=== PATIENT | male | born 1945 | race Caucasian/White ===

== ENCOUNTER 2024-09-30 08:03 | Day surgery (SDC) | payer MEDICARE, SELFPAY ==
[2024-09-25 12:08] VITALS: BMI 25.2
[2024-09-25 12:18] VITALS: BMI 25.2
[2024-09-30] MEDS: Tetracaine HCl/PF 0.5% Oph Sol 4 ML DROPS 1 DROP EYE-LEFT (08:19)
[2024-09-30] MEDS: Cyclopentolate 1 % Ophth Sol 2 ML DRPBTL 1 DROP EYE-LEFT ×3 (08:20→08:36)
[2024-09-30] MEDS: Tropicamide 1 % Ophth Sol 3 ML BTL 1 DROP EYE-LEFT ×3 (08:22→08:38)
[2024-09-30] MEDS: Ketorolac Tromethamine 0.5% Op 5 ML DROPS 1 DROP EYE-LEFT ×3 (08:24→08:40)
[2024-09-30] MEDS: Phenylephrine HCL 2.5% Oph SoL 2 ML BOTTLE 1 DROP EYE-LEFT ×3 (08:26→08:42)
[2024-09-30 08:28] VITALS: BP 119/70; PULSE 65; RESP 16; TEMP 36.4; O2SAT 97; BMI 25.0
--- NOTE | 2024-09-30 08:40 | HO.ANESPROP2 ---
Documented by User: Anastacia Linares NP 09/27/24 08:41 HPI - Anesthesia Eval Consult details Narrative: 78yo M for Left Cataract Extraction IOL Insertion No previous cataract on record Medically opimized per [facility]. States well optimized with medical therapy. CAD s/p CABG s/p AVR HFrEF Eliquis for afib [facility] Past Medical History Medical History (Updated 09/25/24 @ 12:21 by Jocelyn Bach, RN) History of stroke (11/20/23) History of cardioversion Glaucoma Hx-TIA (transient ischemic attack) History of prostate cancer PAF (paroxysmal atrial fibrillation) HTN (hypertension) HLD (hyperlipidemia) Chronic sinusitis CKD (chronic kidney disease), stage III Cardiomyopathy Cataracts, bilateral HFrEF (heart failure with reduced ejection fraction) CAD (coronary artery disease) Surgical History Surgical History (Updated 09/30/24 @ 08:24 by Marnie Mcclendon RN) Hx of tonsillectomy History of heart artery stent Hx of prostatectomy Hx of aortic valve replacement (~2021) Hx of CABG Social History Social History Patient Tobacco Use Status: Never used Tobacco Are you DNR?: No Advance Directives: No Advance Directives Information Provided: Yes Advance Directives on File: No Meds Allergies Allergy/AdvReac Type Severity Reaction Status Date / Time acetaminophen [From Tylenol] AdvReac Intermediate Dizziness Verified 09/30/24 08:25 *If taken for long periods of time* amoxicillin [From Augmentin] AdvReac Gastrointestinal Verified 09/30/24 08:25 Upset clavulanic acid AdvReac Gastrointestinal Verified 09/30/24 08:25 [From Augmentin] Upset prednisone AdvReac contraindicated Verified 09/30/24 08:25 r/t glaucoma Sulfa (Sulfonamide AdvReac Gastrointestinal Verified 09/30/24 08:25 Antibiotics) Upset Home Medications ?Medication ?Instructions ?Recorded ?Confirmed ?Last Taken ?Type apixaban 5 mg tablet (Eliquis) 5 mg PO BID 09/25/24 09/30/24 09/30/24 History aspirin 162.5 mg capsule,extended 162.5 mg PO DAILY 09/25/24 09/30/24 Unknown History release 24 hr atorvastatin 40 mg tablet 40 mg PO DAILY 09/25/24 09/30/24 Unknown History carvedilol 3.125 mg tablet 3.125 mg PO BID 09/25/24 09/30/24 09/30/24 History latanoprost 0.005 % eye drops 1 drp ophthalmic (eye) DAILY 09/25/24 09/30/24 Unknown History (Xalatan) sacubitril 97 mg-valsartan 103 mg 1 tab PO BID 09/25/24 09/30/24 09/30/24 History tablet (Entresto) Exam Height,Weight and Vital Signs: Height 5 ft 4.96 in Weight 68.6 kg Assessment and Plan Assessment Anesthesia Assessment: Chart Reviewed Documented by User: Ale Farah DO 09/30/24 08:50 [facility] Past Medical History Medical History (Updated 09/25/24 @ 12:21 by Jocelyn Bach RN) History of stroke (11/20/23) History of cardioversion Glaucoma Hx-TIA (transient ischemic attack) History of prostate cancer PAF (paroxysmal atrial fibrillation) HTN (hypertension) HLD (hyperlipidemia) Chronic sinusitis CKD (chronic kidney disease), stage III Cardiomyopathy Cataracts, bilateral HFrEF (heart failure with reduced ejection fraction) CAD (coronary artery disease) Family History Family history of problems with anesthesia: No Surgical History Surgical History (Updated 09/30/24 @ 08:24 by Marnie Mcclendon RN) Hx of tonsillectomy History of heart artery stent Hx of prostatectomy Hx of aortic valve replacement (~2021) Hx of CABG History of Problems with Anesthesia: No Social History Social History Patient Tobacco Use Status: Never used Tobacco Are you DNR?: No Advance Directives: No Advance Directives Information Provided: Yes Advance Directives on File: No Meds Allergies Allergy/AdvReac Type Severity Reaction Status Date / Time acetaminophen [From Tylenol] AdvReac Intermediate Dizziness Verified 09/30/24 08:25 *If taken for long periods of time* amoxicillin [From Augmentin] AdvReac Gastrointestinal Verified 09/30/24 08:25 Upset clavulanic acid AdvReac Gastrointestinal Verified 09/30/24 08:25 [From Augmentin] Upset prednisone AdvReac contraindicated Verified 09/30/24 08:25 r/t glaucoma Sulfa (Sulfonamide AdvReac Gastrointestinal Verified 09/30/24 08:25 Antibiotics) Upset Home Medications ?Medication ?Instructions ?Recorded ?Confirmed ?Last Taken ?Type apixaban 5 mg tablet (Eliquis) 5 mg PO BID 09/25/24 09/30/24 09/30/24 History aspirin 162.5 mg capsule,extended 162.5 mg PO DAILY 09/25/24 09/30/24 Unknown History release 24 hr atorvastatin 40 mg tablet 40 mg PO DAILY 09/25/24 09/30/24 Unknown History carvedilol 3.125 mg tablet 3.125 mg PO BID 09/25/24 09/30/24 09/30/24 History latanoprost 0.005 % eye drops 1 drp ophthalmic (eye) DAILY 09/25/24 09/30/24 Unknown History (Xalatan) sacubitril 97 mg-valsartan 103 mg 1 tab PO BID 09/25/24 09/30/24 09/30/24 History tablet (Entresto) Exam Exam Date and Time: 09/30/24 0840 Height,Weight and Vital Signs: Height 5 ft 4.96 in Weight 68.6 kg Vital Signs Temperature 97.5 F 09/30/24 08:28 Pulse Rate 65 09/30/24 08:28 Respiratory Rate 16 09/30/24 08:28 Blood Pressure 119/70 09/30/24 08:28 Pulse Oximetry 97 09/30/24 08:28 Oxygen Delivery Method Room Air 09/30/24 08:28 Temperature 97.5 F 09/30/24 08:28 Pulse Rate 65 09/30/24 08:28 Respiratory Rate 16 09/30/24 08:28 Blood Pressure 119/70 09/30/24 08:28 Pulse Oximetry 97 09/30/24 08:28 Oxygen Delivery Method Room Air 09/30/24 08:28 Airway Mallampati Class: II TM Dist: >3cm Neck ROM: Full Denture: Upper and Lower Heart: S1S2 Lungs: CTAB Assessment and Plan Assessment Anesthesia Assessment: Anesthesia Plan Discussed and Chart Reviewed Final Anesthetic Review Family History of Problems with Anesthesia: No History of Problems with Anesthesia: No NPO: Yes ASA Class: III Final Preanesthetic Review: No Changes in Pt Med Stat, Meds/Allgs Chart Reviewed, Consent Obtained/Reviewed and Anes Risks/Benef Reviewed Patient Risk: Intermediate Procedure Risk: Low Anesthetic Plan Anesthetic Plan: MAC: and Agree w/ Assess. and Plan Disposition: Standard PACU
[2024-09-30] MEDS: Lactated Ringers 500 ML 50 ML IV (08:49)
--- NOTE | 2024-09-30 08:52 | PC.NURSE ---
Patient in preop. SR on monitor, question of inverted T wave/T wave abnormality. Dr. Farah made aware and at bedside. Known cardiac history as well as medical/cardiac clearance obtained. No new EKG or new orders per Dr. Farah.
--- NOTE | 2024-09-30 09:09 | MHC.SHP ---
Pre-Procedural Eval Section A - 24 Hr Update-Section A only Date of Service: 09/30/24 The patient is an INPATIENT: No Changes since office visit: No Cold of Flu in the past 2 weeks, No New Medical Problems, No Changes in Medication and No Patient answered all questions The patient has been examined within 24 hours of the surgical procedure. The History & Physical has been completed within 30 days and I have reviewed it.: Yes Section B - Complete if H&P > 30 days Chief Complaint: Age-related nuclear cataract, left eye Allergies: Allergies Allergy/AdvReac Type Severity Reaction Status Date / Time acetaminophen [From Tylenol] AdvReac Intermediate Dizziness Verified 09/30/24 08:25 *If taken for long periods of time* amoxicillin [From Augmentin] AdvReac Gastrointestinal Verified 09/30/24 08:25 Upset clavulanic acid AdvReac Gastrointestinal Verified 09/30/24 08:25 [From Augmentin] Upset prednisone AdvReac contraindicated Verified 09/30/24 08:25 r/t glaucoma Sulfa (Sulfonamide AdvReac Gastrointestinal Verified 09/30/24 08:25 Antibiotics) Upset Plan Diagnosis/Plan: Unchanged I have reviewed the history and physical and performed a pertinent physical examination on my patient. No changes have occurred unless specified. Time Spent With Patient Time: Total time managing care of this patient today ____ minutes.
--- NOTE | 2024-09-30 09:09 | HO.PNOPHT ---
Ophthalmology Procedure Procedure Date of Service: 09/30/24 Ophthalmology Viscoelastic: Healon Duet Dual Pack Pro Ophthalmology Lenses: IOL Acrysof MP - MA60AC (18.5) Procedure Notes: PREOPERATIVE DIAGNOSIS: Decreased visual acuity left eye secondary to cataract POSTOPERATIVE DIAGNOSIS: Same PROCEDURE: Left cataract extraction with intraocular lens insertion SURGEON: Jarrett Gould M.D. ANESTHESIA: Topical/MAC ESTIMATED BLOOD LOSS: None COMPLICATIONS: None After obtaining informed consent, the patient was brought to the operation room suite and placed in the supine position. After adequate sedation per anesthesia, topical drops of Tetracaine were given to the left eye. The eye was then prepped and draped in the usual sterile fashion. The operating room microscope was then positioned over the operative eye and a lid speculum placed. A paracentesis was created. Viscoelastic was then instilled into the anterior chamber. A three plane incision was then created temporally, utilizing a 2.85 mm keratome. Capsulotomy forceps were then utilized to create a circular tear capsulotomy. Hydrodissection and hydrodelineation were carried out until adequate mobilization of the nucleus occurred. Phacoemulsification was then utilized to remove the dense central nucleus followed by removal of the cortical material utilizing the automated aspiration irrigation unit. Viscoat elastic was instilled into the posterior capsular bag followed by placement of a posterior chamber intraocular lens without difficulty. The residual Viscoat elastic was then removed utilizing the automated IA machine. The wound was check and found to be watertight. The patient tolerated the procedure well and the lid speculum was removed. Intracameral injection of Vigamox 0.1 mL followed by a subtenon injection of Kenalog-40 0.2 mL were administered. The patient will be seen in the a.m.
[2024-09-30 09:37] VITALS: BP 100/65; PULSE 62; RESP 18; TEMP 36.5; O2SAT 94
== END 2024-09-30 09:40 | disposition home or self-care (01) ==
PROVIDERS: Visit Provider Ophthalmology
PROC: (CPT 66985; principal; 2024-09-30 10:00)
DX: H25.12 Age-related nuclear cataract, left eye (principal); Z83.511 Family history of glaucoma; H54.7 Unspecified visual loss; H35.3121 Nonexudative age-related macular degeneration, left eye, early dry stage; H40.1131 Primary open-angle glaucoma, bilateral, mild stage; E78.00 Pure hypercholesterolemia, unspecified; Z85.46 Personal history of malignant neoplasm of prostate; Z90.79 Acquired absence of other genital organ(s); I10 Essential (primary) hypertension; I48.91 Unspecified atrial fibrillation; I25.10 Atherosclerotic heart disease of native coronary artery without angina pectoris; Z95.1 Presence of aortocoronary bypass graft; Z95.2 Presence of prosthetic heart valve; Z95.5 Presence of coronary angioplasty implant and graft; Z86.73 Personal history of transient ischemic attack (TIA), and cerebral infarction without residual deficits; Z79.01 Long term (current) use of anticoagulants; Z79.82 Long term (current) use of aspirin; Z79.899 Other long term (current) drug therapy; Z88.2 Allergy status to sulfonamides; Z87.891 Personal history of nicotine dependence
CPT/HCPCS: 66984; J2250; J3301; V2630

== ENCOUNTER 2024-10-14 07:05 | Day surgery (SDC) | payer MEDICARE, SELFPAY ==
[2024-09-25 12:27] VITALS: BMI 25.2
[2024-10-14 07:44] VITALS: BMI 25.1
[2024-10-14 07:52] VITALS: BP 135/74; PULSE 61; RESP 16; TEMP 36; O2SAT 96
[2024-10-14] MEDS: Tetracaine HCl/PF 0.5% Oph Sol 4 ML DROPS 1 DROP EYE-RIGHT (07:59)
[2024-10-14] MEDS: Cyclopentolate 1 % Ophth Sol 2 ML DRPBTL 1 DROP EYE-RIGHT ×3 (08:00→08:06)
[2024-10-14] MEDS: Ketorolac Tromethamine 0.5% Op 5 ML DROPS 1 DROP EYE-RIGHT ×3 (08:01→08:07)
[2024-10-14] MEDS: Tropicamide 1 % Ophth Sol 3 ML BTL 1 DROP EYE-RIGHT ×3 (08:01→08:06)
[2024-10-14] MEDS: Phenylephrine HCL 2.5% Oph SoL 2 ML BOTTLE 1 DROP EYE-RIGHT ×3 (08:02→08:07)
--- NOTE | 2024-10-14 08:06 | P.CONAN_ITS ---
Documented by User: Anastacia Linares NP 10/10/24 14:05 HPI - Anesthesia Eval Consult details Narrative: 78yo M for Right Cataract Extraction IOL Insertion Left eye 09/30/24: [facility] 1 Medically opimized per [facility]. States well optimized with medical therapy. CAD s/p CABG s/p AVR HFrEF Eliquis for afib [facility] Past Medical History Medical History (Updated 09/25/24 @ 12:21 by Jocelyn Bach, KARIE) History of stroke (11/20/23) History of cardioversion Glaucoma Hx-TIA (transient ischemic attack) History of prostate cancer PAF (paroxysmal atrial fibrillation) HTN (hypertension) HLD (hyperlipidemia) Chronic sinusitis CKD (chronic kidney disease), stage III Cardiomyopathy Cataracts, bilateral HFrEF (heart failure with reduced ejection fraction) CAD (coronary artery disease) Family History Family history of problems with anesthesia: No Surgical History Surgical History (Updated 10/08/24 @ 13:47 by Jocelyn Bach, KARIE) History of left cataract extraction (09/30/24) Hx of tonsillectomy History of heart artery stent Hx of prostatectomy Hx of aortic valve replacement (~2021) Hx of CABG History of Problems with Anesthesia: No Social History Social History Patient Tobacco Use Status: Never used Tobacco Use of substances other than those prescribed or required for medical reasons: No Are you DNR?: No Advance Directives: No Advance Directives Information Provided: Yes Advance Directives on File: No Poor oral hygiene: No Meds Allergies Allergy/AdvReac Type Severity Reaction Status Date / Time acetaminophen [From Tylenol] AdvReac Intermediate Dizziness Verified 09/30/24 08:25 *If taken for long periods of time* amoxicillin [From Augmentin] AdvReac Gastrointestinal Verified 09/30/24 08:25 Upset clavulanic acid AdvReac Gastrointestinal Verified 09/30/24 08:25 [From Augmentin] Upset prednisone AdvReac contraindicated Verified 09/30/24 08:25 r/t glaucoma Sulfa (Sulfonamide AdvReac Gastrointestinal Verified 09/30/24 08:25 Antibiotics) Upset Home Medications ?Medication ?Instructions ?Recorded ?Confirmed ?Last Taken ?Type apixaban 5 mg tablet (Eliquis) 5 mg PO BID 09/25/24 10/14/24 10/13/24 History aspirin 162.5 mg capsule,extended 162.5 mg PO DAILY 09/25/24 09/30/24 Unknown History release 24 hr atorvastatin 40 mg tablet 40 mg PO DAILY 09/25/24 09/30/24 Unknown History carvedilol 3.125 mg tablet 3.125 mg PO BID 09/25/24 09/30/24 09/30/24 History latanoprost 0.005 % eye drops 1 drp ophthalmic (eye) DAILY 09/25/24 09/30/24 Unknown History (Xalatan) sacubitril 97 mg-valsartan 103 mg 1 tab PO BID 09/25/24 09/30/24 09/30/24 History tablet (Entresto) Exam Height,Weight and Vital Signs: Height 5 ft 4.96 in Weight 68.6 kg Assessment and Plan Assessment Anesthesia Assessment: Chart Reviewed Final Anesthetic Review Family History of Problems with Anesthesia: No History of Problems with Anesthesia: No Documented by User: Ale aFrah DO 10/14/24 08:07 [facility] Past Medical History Medical History (Updated 09/25/24 @ 12:21 by Jocelyn Bach, RN) History of stroke (11/20/23) History of cardioversion Glaucoma Hx-TIA (transient ischemic attack) History of prostate cancer PAF (paroxysmal atrial fibrillation) HTN (hypertension) HLD (hyperlipidemia) Chronic sinusitis CKD (chronic kidney disease), stage III Cardiomyopathy Cataracts, bilateral HFrEF (heart failure with reduced ejection fraction) CAD (coronary artery disease) Family History Family history of problems with anesthesia: No Surgical History Surgical History (Updated 10/08/24 @ 13:47 by Jocelyn Bach, RN) History of left cataract extraction (09/30/24) Hx of tonsillectomy History of heart artery stent Hx of prostatectomy Hx of aortic valve replacement (~2021) Hx of CABG History of Problems with Anesthesia: No Social History Social History Patient Tobacco Use Status: Never used Tobacco Use of substances other than those prescribed or required for medical reasons: No Are you DNR?: No Advance Directives: No Advance Directives Information Provided: Yes Advance Directives on File: No Poor oral hygiene: No Meds Allergies Allergy/AdvReac Type Severity Reaction Status Date / Time acetaminophen [From Tylenol] AdvReac Intermediate Dizziness Verified 09/30/24 08:25 *If taken for long periods of time* amoxicillin [From Augmentin] AdvReac Gastrointestinal Verified 09/30/24 08:25 Upset clavulanic acid AdvReac Gastrointestinal Verified 09/30/24 08:25 [From Augmentin] Upset prednisone AdvReac contraindicated Verified 09/30/24 08:25 r/t glaucoma Sulfa (Sulfonamide AdvReac Gastrointestinal Verified 09/30/24 08:25 Antibiotics) Upset Home Medications ?Medication ?Instructions ?Recorded ?Confirmed ?Last Taken ?Type apixaban 5 mg tablet (Eliquis) 5 mg PO BID 09/25/24 10/14/24 10/13/24 History aspirin 162.5 mg capsule,extended 162.5 mg PO DAILY 09/25/24 09/30/24 Unknown History release 24 hr atorvastatin 40 mg tablet 40 mg PO DAILY 09/25/24 09/30/24 Unknown History carvedilol 3.125 mg tablet 3.125 mg PO BID 09/25/24 09/30/24 09/30/24 History latanoprost 0.005 % eye drops 1 drp ophthalmic (eye) DAILY 09/25/24 09/30/24 Unknown History (Xalatan) sacubitril 97 mg-valsartan 103 mg 1 tab PO BID 09/25/24 09/30/24 09/30/24 History tablet (Entresto) Exam Exam Date and Time: 10/14/24 0805 Height,Weight and Vital Signs: Height 5 ft 4.96 in Weight 68.6 kg Vital Signs Temperature 96.8 F 10/14/24 07:52 Pulse Rate 61 10/14/24 07:52 Respiratory Rate 16 10/14/24 07:52 Blood Pressure 135/74 10/14/24 07:52 Pulse Oximetry 96 10/14/24 07:52 Oxygen Delivery Method Room Air 10/14/24 07:52 Temperature 96.8 F 10/14/24 07:52 Pulse Rate 61 10/14/24 07:52 Respiratory Rate 16 10/14/24 07:52 Blood Pressure 135/74 0407/25 07:52 Pulse Oximetry 96 10/14/24 07:52 Oxygen Delivery Method Room Air 10/14/24 07:52 Airway Mallampati Class: II TM Dist: >3cm Neck ROM: Full Denture: Upper and Lower Heart: S1S2 Lungs: CTAB Assessment and Plan Assessment Anesthesia Assessment: Anesthesia Plan Discussed and Chart Reviewed Final Anesthetic Review Family History of Problems with Anesthesia: No History of Problems with Anesthesia: No NPO: Yes ASA Class: III Final Preanesthetic Review: No Changes in Pt Med Stat, Meds/Allgs Chart Reviewed, Consent Obtained/Reviewed and Anes Risks/Benef Reviewed Patient Risk: Intermediate Procedure Risk: Low Anesthetic Plan Anesthetic Plan: MAC: and Agree w/ Assess. and Plan Disposition: Standard PACU
[2024-10-14] MEDS: Lactated Ringers 500 ML 50 ML IV (08:08)
--- NOTE | 2024-10-14 08:41 | MHC.SHP ---
Pre-Procedural Eval Section A - 24 Hr Update-Section A only Date of Service: 10/14/24 The patient is an INPATIENT: No Changes since office visit: No Cold of Flu in the past 2 weeks, No New Medical Problems, No Changes in Medication and No Patient answered all questions The patient has been examined within 24 hours of the surgical procedure. The History & Physical has been completed within 30 days and I have reviewed it.: Yes Section B - Complete if H&P > 30 days Chief Complaint: Age-related nuclear cataract, right eye Allergies: Allergies Allergy/AdvReac Type Severity Reaction Status Date / Time acetaminophen [From Tylenol] AdvReac Intermediate Dizziness Verified 09/30/24 08:25 *If taken for long periods of time* amoxicillin [From Augmentin] AdvReac Gastrointestinal Verified 09/30/24 08:25 Upset clavulanic acid AdvReac Gastrointestinal Verified 09/30/24 08:25 [From Augmentin] Upset prednisone AdvReac contraindicated Verified 09/30/24 08:25 r/t glaucoma Sulfa (Sulfonamide AdvReac Gastrointestinal Verified 09/30/24 08:25 Antibiotics) Upset Plan Diagnosis/Plan: Unchanged I have reviewed the history and physical and performed a pertinent physical examination on my patient. No changes have occurred unless specified. Time Spent With Patient Time: Total time managing care of this patient today ____ minutes.
--- NOTE | 2024-10-14 08:42 | P.PCNO_ITS ---
Ophthalmology Procedure Procedure Date of Service: 10/14/24 Ophthalmology Viscoelastic: Healon Duet Dual Pack Pro Ophthalmology Lenses: IOL Acrysof MP - MA60AC (19) Procedure Notes: PREOPERATIVE DIAGNOSIS: Decreased visual acuity right eye secondary to cataract POSTOPERATIVE DIAGNOSIS: Same PROCEDURE: Right cataract extraction with intraocular lens insertion SURGEON: Jarrett Gould M.D. ANESTHESIA: Topical/MAC ESTIMATED BLOOD LOSS: None COMPLICATIONS: None After obtaining informed consent, the patient was brought to the operating room suite and placed in the supine position. After adequate sedation per anesthesia, topical drops of Tetracaine were given to the right eye. The eye was then prepped and draped in the usual sterile fashion. The operating room microscope was then positioned over the operative eye and a lid speculum placed. A paracentesis was created. Viscoelastic was then instilled into the anterior chamber. A three plane incision was then created temporally, utilizing a 2.85 mm keratome. Capsulotomy forceps were then utilized to create a circular tear capsulotomy. Hydrodissection and hydrodelineation were carried out until adequate mobilization of the nucleus occurred. Phacoemulsification was then utilized to remove the dense central nucl eus followed by removal of the cortical material utilizing the automated aspiration irrigation unit. Viscoelastic was instilled into the posterior capsular bag followed by placement of a posterior chamber intraocular lens without difficulty. The residual Viscoelastic was then removed utilizing the automated IA machine. The wound was checked and found to be watertight. The patient tolerated the procedure well and the lid speculum was removed. Intracameral injection of Vigamox 0.1 mL followed by a subtenon injection of Kenalog-40 0.2 mL were administered. The patient will be seen in the a.m.
[2024-10-14 09:14] VITALS: BP 123/71; PULSE 57; RESP 18; TEMP 36.3; O2SAT 98
== END 2024-10-14 09:17 | disposition home or self-care (01) ==
PROVIDERS: Visit Provider Ophthalmology
PROC: (CPT 66985; principal; 2024-10-14 09:00)
DX: H25.11 Age-related nuclear cataract, right eye (principal); H54.7 Unspecified visual loss; H35.3210 Exudative age-related macular degeneration, right eye, stage unspecified; H40.1131 Primary open-angle glaucoma, bilateral, mild stage; C61 Malignant neoplasm of prostate; E78.00 Pure hypercholesterolemia, unspecified; I13.0 Hypertensive heart and chronic kidney disease with heart failure and stage 1 through stage 4 chronic kidney disease, or unspecified chronic kidney disease; I50.20 Unspecified systolic (congestive) heart failure; N18.31 Chronic kidney disease, stage 3a; I25.10 Atherosclerotic heart disease of native coronary artery without angina pectoris; I48.91 Unspecified atrial fibrillation; Z95.1 Presence of aortocoronary bypass graft; Z95.2 Presence of prosthetic heart valve; Z95.5 Presence of coronary angioplasty implant and graft; Z86.73 Personal history of transient ischemic attack (TIA), and cerebral infarction without residual deficits; Z79.01 Long term (current) use of anticoagulants; Z79.82 Long term (current) use of aspirin; Z79.899 Other long term (current) drug therapy; Z88.2 Allergy status to sulfonamides
CPT/HCPCS: 66984; J2250; J3301; V2630